=== PATIENT | male | born 1980 | race African-American/Black ===

== ENCOUNTER 2023-10-12 14:06 | Emergency (ER) | payer SELFPAY ==
[~2023-10-12] VITALS: Ht 182.9 cm; Wt 91.0 kg
[2023-10-12 14:14] VITALS: TEMP 98.2; O2SAT 100
[2023-10-12] MEDS ORDERED: AMOX1TAB16 MT (15:24)
[2023-10-12 16:03] VITALS: BP 114/72; PULSE 82; RESP 19
== END 2023-10-12 16:16 | disposition home or self-care (01) ==
LOC: ER 16:12
DX: J32.9 Chronic sinusitis, unspecified (principal)
CPT/HCPCS: 99283